=== PATIENT | male | born 1990 | race Caucasian/White ===

== ENCOUNTER 2017-05-19 11:09 | Emergency (ER) | payer BC ==
[~2017-05-19] VITALS: Ht 177.8 cm; Wt 108.9 kg
[2017-05-19] MEDS ORDERED: LEXAPRO20 MG ORAL (11:26)
[2017-05-19 11:28] VITALS: BP 128/66
[2017-05-19] MEDS ORDERED: PredniSONE 20mg tab ORAL ONE (12:15)
[2017-05-19 12:42] LABS: MEAN CORPUSCULAR HEMOGLOBIN 31.3 PG (27.0-31.0); MEAN CORPUSCULAR HGB CONC 35.2 G/DL (32.0-36.0); MEAN CORPUSCULAR VOLUME 89 FL (80-99); PLATELET COUNT 238 K/UL (150-450); RED BLOOD COUNT 4.94 M/UL (4.70-6.10); RED CELL DISTRIBUTION WIDTH 11.1 % (11.6-14.8)
[2017-05-19 12:54] LABS: ALANINE AMINOTRANSFERASE 63 U/L (3-41); ALBUMIN/GLOBULIN RATIO 1.2 (1.0-2.7); ANION GAP 15 (5-15); ASPARTATE AMINO TRANSFERASE 45 U/L (5-40); CALCIUM 9.5 mg/dL (8.6-10.2); CARBON DIOXIDE 23 mEQ/L (20-30); CHLORIDE 96 mEQ/L (98-107); CREATININE 0.8 mg/dL (0.7-1.2); GLOMERULAR FILTRATION RATE > 60 mL/min (>60); HEMOLYSIS 159; SODIUM 134 mEQ/L (135-145); TOTAL PROTEIN 7.2 g/dL (6.6-8.7)
[2017-05-19 13:00] LABS: POTASSIUM 4.6 mEQ/L (3.4-4.9)
[2017-05-19 13:03] LABS: BAND NEUTROPHILS % (MANUAL) 0 % (0-8); BASOPHILS % (MANUAL) 0 % (0-2); EOSINOPHILS % (MANUAL) 9 % (0-3); LYMPHOCYTES % (MANUAL) 16 % (20-45); NEUTROPHILS % (MANUAL) 59 % (45-75); PLATELET ESTIMATE ADEQUATE; TOTAL CELLS COUNTED 100
--- NOTE | 2017-05-19 13:03 | Emergency Room Report ---
History of Present Illness General Chief Complaint: Allergic Reaction Source: Patient, Caregiver Present Illness HPI Patient states that he changed to a new laundry detergent. He states he bought a new type of laundry detergent. He states that he washed his bed sheets and then went to bed and then 2 nights ago and woke up with a diffuse rash covering his body other than where his shirt and shorts shorts were that he wore to bed. He denies any new medications. He states that he was in a fine and at first he thought this was a sunburn. However, the rash worsened. He denies fever or chills. He denies any other new contacts. He has no other complaints. Allergies: Uncoded Allergies: NKDA (Allergy, Unknown, 05/19/17) Patient History Past Medical History: none Past Surgical History: none Social History: Denies: alcohol use, drug use, smoking Reviewed Nursing Documentation: PMH: Agreed, PSxH: Agreed Nursing Documentation-PMH Past Medical History: No Stated History Review of Systems All Other Systems: negative except mentioned in HPI Physical Exam Vital Signs Date Time Temp Pulse Resp B/P Pulse Ox O2 Delivery O2 Flow Rate FiO2 05/19/17 11:23 99.0 122 16 128/66 100 Room Air Sp02 EP Interpretation: reviewed, normal General Appearance: no apparent distress, alert, GCS 15, non-toxic Head: normocephalic, atraumatic Eyes: bilateral eye PERRL, bilateral eye normal inspection ENT: hearing grossly normal, normal pharynx, no angioedema, normal voice Neck: full range of motion, supple/symm/no masses Respiratory: chest non-tender, lungs clear, normal breath sounds, speaking full sentences Cardiovascular #1: regular rate, rhythm, no edema Gastrointestinal: normal bowel sounds, non tender, soft, non-distended, no guarding, no rebound Rectal: deferred Musculoskeletal: back normal, gait/station normal, normal range of motion, non- tender Neurologic: alert, oriented x3, responsive, motor strength/tone normal, sensory intact, speech normal Psychiatric: judgement/insight normal, memory normal, mood/affect normal, no suicidal/homicidal ideation Skin: warm/dry, well hydrated, other - Bright red erythematous rash covering the patient's entire body with scattered lesions of much less concentration underneath the distribution of a tank top and shorts. Lymphatic: no adenopathy Medical Decision Making Diagnostic Impression: Primary Impression: Contact dermatitis Additional Impression: Allergic reaction ER Course This patient appears to have a contact dermatitis. The patient has contact with a new laundry detergent. The distribution of the rash is on the exposed skin to the bedding. There is a profound decrease in the distribution of the rash under the clothing. The patient was given Benadryl and oral prednisone here. The patient is instructed to get red of this laundry detergent and re- wash all of the clothing and bedding that he used without particular detergent. The patient is overall nontoxic and well-appearing. He is given return precautions and followup instructions. Labs Test 05/19/17 12:19 White Blood Count 6.0 K/UL (4.8-10.8) Red Blood Count 4.94 M/UL (4.70-6.10) Hemoglobin 15.5 G/DL (14.2-18.0) Hematocrit 44.0 % (42.0-52.0) Mean Corpuscular Volume 89 FL (80-99) Mean Corpuscular Hemoglobin 31.3 PG (27.0-31.0) Mean Corpuscular Hemoglobin Concent 35.2 G/DL (32.0-36.0) Red Cell Distribution Width 11.1 % (11.6-14.8) Platelet Count 238 K/UL (150-450) Mean Platelet Volume 8.0 FL (6.5-10.1) Neutrophils (%) (Auto) % (45.0-75.0) Lymphocytes (%) (Auto) % (20.0-45.0) Monocytes (%) (Auto) % (1.0-10.0) Eosinophils (%) (Auto) % (0.0-3.0) Basophils (%) (Auto) % (0.0-2.0) Differential Total Cells Counted 100 Neutrophils % (Manual) 59 % (45-75) Lymphocytes % (Manual) 16 % (20-45) Monocytes % (Manual) 16 % (1-10) Eosinophils % (Manual) 9 % (0-3) Basophils % (Manual) 0 % (0-2) Band Neutrophils 0 % (0-8) Platelet Estimate Adequate Platelet Morphology Normal Red Blood Cell Morphology Normal Sodium Level 134 mEQ/L (135-145) Potassium Level 4.6 mEQ/L (3.4-4.9) Chloride Level 96 mEQ/L (98-107) Carbon Dioxide Level 23 mEQ/L (20-30) Anion Gap 15 (5-15) Blood Urea Nitrogen 12 mg/dL (7-23) Creatinine 0.8 mg/dL (0.7-1.2) Estimat Glomerular Filtration Rate > 60 mL/min (>60) Glucose Level 123 mg/dL (74-106) Calcium Level 9.5 mg/dL (8.6-10.2) Total Bilirubin 0.4 mg/dL (0.0-1.2) Aspartate Amino Transf (AST/SGOT) 45 U/L (5-40) Alanine Aminotransferase (ALT/SGPT) 63 U/L (3-41) Alkaline Phosphatase 61 U/L (40-129) Total Protein 7.2 g/dL (6.6-8.7) Albumin 4.0 g/dL (3.5-5.2) Globulin 3.2 g/dL Albumin/Globulin Ratio 1.2 (1.0-2.7) Last Vital Signs Date Time Temp Pulse Resp B/P Pulse Ox O2 Delivery O2 Flow Rate FiO2 05/19/17 11:28 99.0 16 128/66 100 Room Air 05/19/17 11:23 122 Disposition: HOME, SELF-CARE Condition: Stable Referrals: NOT CHOSEN ARVIN/,REFERRING (PCP) TYRELL GILMORE D.O. May 19, 2017 13:03
[2017-05-19 13:04] LABS: PLATELET MORPHOLOGY NORMAL
[2017-05-19 13:05] VITALS: BP 132/91
[2017-05-19] MEDS ORDERED: BENADRYL25 MG ORAL (13:50)
[2017-05-19] MEDS ORDERED: PREDNISONE20 MG ORAL (13:50)
[2017-05-19 14:11] VITALS: BP 148/84
== END 2017-05-19 14:11 | disposition home or self-care (01) ==
LOC: EMR 11:36
DX: L23.89 Allergic contact dermatitis due to other agents (principal)
CPT/HCPCS: 36415; 80053; 85007; 85025; 99284

== ENCOUNTER 2017-08-31 13:23 | Emergency (ER) | payer BC ==
[~2017-08-31] VITALS: Ht 177.8 cm; Wt 104.3 kg
[~2017-08-31 13:23] MED LIST: BENADRYL25 MG ORAL; LEXAPRO20 MG ORAL; PREDNISONE20 MG ORAL
[2017-08-31 13:36] VITALS: BP 127/84
[2017-08-31] MEDS ORDERED: AMOXICILLIN500 MG ORAL (13:47)
[2017-08-31] MEDS ORDERED: PROMETHAZINE-D118 ML ORAL (13:47)
[2017-08-31 14:07] VITALS: BP 127/84
--- NOTE | 2017-08-31 14:37 | Emergency Room Report ---
History of Present Illness General Chief Complaint: Earache Source: Patient Present Illness HPI The patient is a 26-year-old male presenting for right ear pain which began one week prior. He denies any known reason for the pain. Pain is an 8/10 dull ache and does not radiate. He also admits to decreased hearing from the right side. No known provoking relieving factors. He also admits to sore throat. He denies any other symptoms including fever, chills, SOB, rash Allergies: Uncoded Allergies: NKDA (Allergy, Unknown, 05/19/17) Patient History Past Medical History: see triage record Reviewed Nursing Documentation: PMH: Agreed, PSxH: Agreed Nursing Documentation-PMH Past Medical History: No Stated History Review of Systems All Other Systems: negative except mentioned in HPI Physical Exam Vital Signs Date Time Temp Pulse Resp B/P (MAP) Pulse Ox O2 Delivery O2 Flow Rate FiO2 08/31/17 13:28 97.9 108 17 127/84 99 Room Air Sp02 EP Interpretation: reviewed, normal General Appearance: no apparent distress, alert, GCS 15, non-toxic Head: normocephalic, atraumatic Eyes: bilateral eye normal inspection, bilateral eye PERRL ENT: hearing grossly normal, normal pharynx, no angioedema, normal voice, uvula midline, other - Bilat TM erythema and bulging with serous fluid behind TM Neck: full range of motion, supple/symm/no masses Respiratory: chest non-tender, lungs clear, normal breath sounds, no wheezing, speaking full sentences Cardiovascular #1: regular rate, rhythm, no edema Gastrointestinal: normal bowel sounds, non tender, soft, non-distended, no guarding, no rebound Musculoskeletal: back normal, gait/station normal, normal range of motion, non- tender Neurologic: alert, oriented x3, responsive, motor strength/tone normal, sensory intact, speech normal Psychiatric: judgement/insight normal, memory normal, mood/affect normal, no suicidal/homicidal ideation Skin: normal color, no rash, warm/dry, well hydrated Lymphatic: no adenopathy Medical Decision Making PA Attestation Dr. Izaguirre is my supervising physician. Patient management was discussed with my supervising physician Diagnostic Impression: Primary Impression: Otitis media Qualified Codes: H65.193 - Other acute nonsuppurative otitis media, bilateral ER Course The patient is a 26-year-old male presenting for right ear pain Differential diagnosis include but not limited to otitis externa, otitis media, mastoiditis, sinusitis, pharyngitis Physical exam: Vitals within normal limits. No apparent distress HEENT exam: There is bilateral tympanic membrane erythema and bulging. External auditory canal unremarkable. No tenderness to palpation over tragus. No nasal discharge. No tonsillar edema or erythema. No exudate Lungs are clear to auscultation bilaterally The patient will be discharged home with a prescription for amoxicillin and will followup with internal combustion engineer. ER precautions are given Last Vital Signs Date Time Temp Pulse Resp B/P (MAP) Pulse Ox O2 Delivery O2 Flow Rate FiO2 08/31/17 14:07 97.9 75 17 127/84 99 Room Air Status: improved Disposition: HOME, SELF-CARE Condition: Improved Scripts Amoxicillin* (AMOXIL*) 500 Mg Capsule 500 MG ORAL Q12HR, #20 CAP Prov: CHRISTAL [email or web address] 08/31/17 D-Methorphan Hb/Prometh Hcl* (PROMETHAZINE-DM SYRUP*) 118 Ml Syrup 5 ML ORAL Q6H Y for For Cough, #118 ML 0 Refills Prov: CHRISTAL MORALES 08/31/17 Referrals: NOT CHOSEN IPA/MD,REFERRING Patient Instructions: Otitis Media, Adult Additional Instructions: I discussed my findings with the patient. All questions and concerns have been answered. Treatment and medication compliance have been addressed. I advised the patient that they need to follow up with PMD in 3-5 days. Return to ED if pain remains or worsens, cough worsens or remains, you notice blood in your sputum, you notice wheezing, you experience a fever, or if needed for any reason. Patient verbalized understanding of discharge instructions. CHRISTAL MORALES Aug 31, 2017 14:37
== END 2017-08-31 14:30 | disposition home or self-care (01) ==
LOC: EMR 13:45
DX: H65.193 Other acute nonsuppurative otitis media, bilateral (principal)
CPT/HCPCS: 99284